=== PATIENT | male | born 1960 | race Caucasian/White ===

== ENCOUNTER 2021-09-20 18:48 | Inpatient (IN) | payer OTHER, SELFPAY ==
[~2021-09-20] VITALS: Ht 165.1 cm; Wt 48.6 kg
[~2021-09-20 18:48] MED LIST: ETOMIDATE 2 MG/ML 10 ML INJ IV ONE; MIDAZOLAM HCL 2 MG/2 ML VIAL ONE; NALOXONE HCL INJ 0.4 MG/ML AMP ONE; SUCCINYLCHOLINE CHLORIDE 20 MG/ML 10ML VIAL ONE
[2021-09-20] MEDS ORDERED: CEFEPIME 1 GM in SODIUM CHLORIDE 0.9% 50ML 50 ML IV ONE (19:15)
[2021-09-20 19:16] LABS: BASOPHILS # (AUTO) 0.1 (0.0-0.1); BASOPHILS % 0.3 % (0.0-1.0); HEMATOCRIT 48.1 % (38.2-49.6); HEMOGLOBIN 15.1 g/dL (14.0-18.0); LYMPHOCYTES # (AUTO) 3.9 (1.0-3.2); LYMPHOCYTES % 8.4 % (18.0-39.1); MEAN CORPUSCULAR HEMOGLOBIN 26.5 pg (28-32); MEAN CORPUSCULAR HGB CONC 31.4 g/dL (31-35); MEAN CORPUSCULAR VOLUME 84.4 fL (81-99); MONOCYTES # (AUTO) 3.5 (0.2-0.8); MONOCYTES % 7.6 % (4.4-11.3); NEUTROPHILS # (AUTO) 37.2 (2.1-6.9); NEUTROPHILS % 80.3 % (38.7-80.0); PLATELET COUNT 525 x10e3/uL (140-360); RED CELL DISTRIBUTION WIDTH 17.2 % (11.7-14.4)
[2021-09-20] MEDS ORDERED: ONDANSETRON HCL INJ 2MG/ML 2ML 2 MG/ML VIAL ONE (19:20)
[2021-09-20 19:21] LABS: CLARITY,URINE SL CLOUDY (CLEAR); COLOR,URINE YELLOW (YELLOW); KETONES,URINE NEGATIVE (NEGATIVE); LEUKOCYTE ESTERASE ,URINE NEGATIVE (NEGATIVE); NITRITE,URINE NEGATIVE (NEGATIVE); PROTEIN,URINE DIPSTICK 1+ (NEGATIVE); URINE UROBILINOGEN 0.2 mg/dL (0.2 - 1)
[2021-09-20] MEDS ORDERED: Morphine 4mg Syringe 4 MG/ML INJ ONE (19:21)
[2021-09-20 19:27] LABS: ALBUMIN 3.8 g/dL (3.5-5.0); ALBUMIN/GLOBULIN RATIO 1.1 (0.8-2.0); ANION GAP 29.4 mmol/L (8-16); CALCIUM 9.6 mg/dL (8.4-10.2); CREATININE, SERUM 0.86 mg/dL (0.72-1.25); POTASSIUM 4.4 mmol/L (3.5-5.1)
[2021-09-20 19:29] LABS: BACTERIA,URINE FEW /HPF; RBC,URINE 0-5 /HPF (0-5); WBC,URINE (MAN) 0-5 /HPF (0-5)
[2021-09-20 19:30] LABS: AMORPHOUS SEDIMENT,URINE FEW (FEW)
[2021-09-20] MEDS ORDERED: LEVALBUTEROL HCL SOLN NEBU 1.25 MG/3 ML NEB INH ONE (19:30)
[2021-09-20] MEDS ORDERED: IPRATROPIUM BROMIDE 0.02% 2.5 ML NEB NEB ONE (19:30)
[2021-09-20] MEDS ORDERED: ASPIRIN 81 MG CHEW TAB PO ONE (19:45)
[2021-09-20 20:07] LABS: CREATINE KINASE MB 18.7 ng/mL (0-5.0)
[2021-09-20] MEDS ORDERED: FOSPHENYTOIN 50 MG/ML VIAL IV STA (21:08)
[2021-09-20] MEDS ORDERED: FOSPHENYTOIN 1,000 MG in SODIUM CHLORIDE 0.9% 100 ML 100 ML IV ONE ×2 (21:15→21:30)
[2021-09-20] MEDS ORDERED: ACETAMINOPHEN 325 MG TAB PO PRN (21:15)
[2021-09-20] MEDS ORDERED: ONDANSETRON HCL INJ 2MG/ML 2ML 2 MG/ML VIAL IV PRN (21:15)
[2021-09-20] MEDS ORDERED: SODIUM CHLORIDE 0.9% 1000ML 1,000 ML IV SCH (21:15)
[2021-09-20] MEDS ORDERED: DEXAMETHASONE SOD PHOS 10 MG/1 ML VIAL ONE (21:43)
[2021-09-20] MEDS ORDERED: CEFTRIAXONE 1 GM VIAL ONE (21:44)
[2021-09-20] MEDS ORDERED: SODIUM CHLORIDE 0.9% 250ML 250 ML ONE (21:44)
[2021-09-20] MEDS ORDERED: REMDESIVIR 100MG 100 MG IV ONE ×2 (21:45→21:47)
[2021-09-20] MEDS ORDERED: SODIUM CHLORIDE 0.9% 200 ML ONE (21:46)
[2021-09-20 23:45] LABS: ABG HCO3 22 mmol/L (22-26); ABG PCO2 63 mmHg (35-45); ABG PH 7.15 (7.35-7.45); ABG PO2 520 mmHg (80-105); ABG TCO2 24
[2021-09-20] MEDS ORDERED: FOSPHENYTOIN 50 MG/ML 10ML VIAL ONE (23:58)
[2021-09-21] VITALS (8 sets, daily range): BP systolic 103–133; BP diastolic 54–94
[2021-09-21] MEDS ORDERED: SODIUM CHLORIDE 0.9% 100 ML ONE (00:47)
[2021-09-21] MEDS ORDERED: ACETAMINOPHEN 1000 MG/100 ML IV STA (02:11)
[2021-09-21] MEDS ORDERED: CLONAZEPAM1 MG PO (06:15)
[2021-09-21] MEDS ORDERED: ALPRAZOLAM1 MG PO (06:15)
[2021-09-21] MEDS ORDERED: ALBUTEROL INH (06:15)
[2021-09-21] MEDS ORDERED: MONTELUKAST SOD10 MG PO (06:15)
[2021-09-21] MEDS ORDERED: LOSARTAN POTASS25 MG PO (06:15)
[2021-09-21 06:33] LABS: BASOPHILS % 0.1 % (0.0-1.0); HEMATOCRIT 38.3 % (38.2-49.6); HEMOGLOBIN 12.5 g/dL (14.0-18.0); LYMPHOCYTES # (AUTO) 1.2 (1.0-3.2); LYMPHOCYTES % 2.5 % (18.0-39.1); MEAN CORPUSCULAR HEMOGLOBIN 26.7 pg (28-32); MEAN CORPUSCULAR HGB CONC 32.6 g/dL (31-35); MEAN CORPUSCULAR VOLUME 81.7 fL (81-99); MONOCYTES # (AUTO) 2.9 (0.2-0.8); MONOCYTES % 6.3 % (4.4-11.3); NEUTROPHILS # (AUTO) 41.1 (2.1-6.9); NEUTROPHILS % 88.1 % (38.7-80.0); PLATELET COUNT 440 x10e3/uL (140-360); RED BLOOD COUNT 4.69 x10e6/uL (4.3-5.7); RED CELL DISTRIBUTION WIDTH 16.2 % (11.7-14.4)
[2021-09-21 06:48] LABS: ALBUMIN 2.9 g/dL (3.5-5.0); ALBUMIN/GLOBULIN RATIO 1.2 (0.8-2.0); ANION GAP 13.8 mmol/L (8-16); CREATININE, SERUM 0.69 mg/dL (0.72-1.25); POTASSIUM 3.8 mmol/L (3.5-5.1)
[2021-09-21 07:11] LABS: CREATINE KINASE MB 19.9 ng/mL (0-5.0)
[2021-09-21 07:54] LABS: BAND NEUTROPHILS % (MANUAL) 1 %; LYMPHOCYTES % (MANUAL) 4 % (19-48); MONOCYTES % (MANUAL) 4 % (3.4-9.0); NEUTROPHILS % (MANUAL) 91 % (40-74); PLATELET ESTIMATE SLIGHTLY INCREASED; RBC MORPHOLOGY COMMENT NORMAL
[2021-09-21 07:55] LABS: PLATELET CLUMPS FEW; PLATELET MORPHOLOGY COMMENT FEW LARGE
[2021-09-21] MEDS: CEFTRIAXONE 2 GM in SODIUM CHLORIDE 0.9% 100 ML IV SCH (08:34)
[2021-09-21] MEDS: ASCORBIC ACID 500 MG TAB PO SCH ×2 (08:34→16:45)
[2021-09-21] MEDS: DEXAMETHASONE SOD PHOS 10 MG/1 ML VIAL IV SCH (08:34)
[2021-09-21] MEDS: ZINC SULFATE 50 MG CAP PO SCH (08:34)
[2021-09-21] MEDS ORDERED: SODIUM CHLORIDE 0.9% 250ML 250 ML ONE (08:39)
[2021-09-21 15:30] LABS: CREATINE KINASE MB 21.7 ng/mL (0-5.0)
[2021-09-21 18:59] LABS: CREATINE KINASE MB 21.6 ng/mL (0-5.0)
[2021-09-21] MEDS: ALBUTEROL SULFATE HFA 8GM INHALATION AEROSOL INH SCH (19:40)
[2021-09-22] VITALS: BP 126/63
[2021-09-22] MEDS: ALBUTEROL SULFATE HFA 8GM INHALATION AEROSOL INH SCH ×3 (00:01→12:37)
[2021-09-22 04:00] VITALS: BP 124/60
[2021-09-22 06:44] LABS: EOSINOPHILS # (AUTO) 0.1 (0.0-0.4); EOSINOPHILS % 0.1 % (0.0-6.0); LYMPHOCYTES # (AUTO) 1.2 (1.0-3.2); LYMPHOCYTES % 1.7 % (18.0-39.1); MEAN CORPUSCULAR HEMOGLOBIN 26.7 pg (28-32); MEAN CORPUSCULAR HGB CONC 32.5 g/dL (31-35); MEAN CORPUSCULAR VOLUME 82.3 fL (81-99); MONOCYTES # (AUTO) 3.4 (0.2-0.8); MONOCYTES % 4.7 % (4.4-11.3); NEUTROPHILS # (AUTO) 64.6 (2.1-6.9); NEUTROPHILS % 90.3 % (38.7-80.0); PLATELET COUNT 461 x10e3/uL (140-360); RED BLOOD COUNT 4.86 x10e6/uL (4.3-5.7); RED CELL DISTRIBUTION WIDTH 16.9 % (11.7-14.4)
[2021-09-22 07:05] LABS: ALBUMIN/GLOBULIN RATIO 1.1 (0.8-2.0); ANION GAP 18.5 mmol/L (8-16); CALCIUM 8.5 mg/dL (8.4-10.2); CREATININE, SERUM 0.64 mg/dL (0.72-1.25); POTASSIUM 4.5 mmol/L (3.5-5.1)
[2021-09-22 08:03] VITALS: BP 151/69
[2021-09-22 09:00] VITALS: BP 151/69
[2021-09-22 09:19] LABS: LYMPHOCYTES % (MANUAL) 2 % (19-48); NEUTROPHILS % (MANUAL) 98 % (40-74); PLATELET ESTIMATE ADEQUATE; PLATELET MORPHOLOGY COMMENT NORMAL; RBC MORPHOLOGY COMMENT NORMAL
[2021-09-22] MEDS: ZINC SULFATE 50 MG CAP PO SCH (09:53)
[2021-09-22] MEDS: DEXAMETHASONE SOD PHOS 10 MG/1 ML VIAL IV SCH (09:53)
[2021-09-22] MEDS: CEFTRIAXONE 2 GM in SODIUM CHLORIDE 0.9% 100 ML IV SCH (09:53)
[2021-09-22] MEDS: ASCORBIC ACID 500 MG TAB PO SCH (09:53)
[2021-09-22 11:52] VITALS: BP 153/75
[2021-09-22 15:41] VITALS: BP 146/70
== END 2021-09-22 15:43 | disposition hospice, home (50) | DRG 871 ==
LOC: ER 19:04 → ERHOLD 21:27 → MED/SURG2 09-21 02:20 → MED/SURG3 09-21 18:30
PROVIDERS: ADMIT Internal Medicine; ATTEND Internal Medicine
PROC: XW033E5 Introduction of Remdesivir Anti-infective into Peripheral Vein, Percutaneous Approach, New Technology Group 5 (ICD-10-PCS; principal; 2021-09-20)
DX: A41.9 Sepsis, unspecified organism (principal); G93.6 Cerebral edema; U07.1 COVID-19; J18.8 Other pneumonia, unspecified organism; C34.91 Malignant neoplasm of unspecified part of right bronchus or lung; C79.31 Secondary malignant neoplasm of brain; Z68.1 Body mass index [BMI] 19.9 or less, adult; J44.0 Chronic obstructive pulmonary disease with (acute) lower respiratory infection; R63.6 Underweight; F17.200 Nicotine dependence, unspecified, uncomplicated; J44.9 Chronic obstructive pulmonary disease, unspecified; Z66 Do not resuscitate; Z51.5 Encounter for palliative care
CPT/HCPCS: 36415; 51700; 70450; 71045; 80053; 81001; 82550; 82553; 82805; 83605; 84484; 85025; 87040; 87071; 87086; 87205; 93005; 94660; 94799; 99284; J0248; J0330; J0456; J0692; J0696; J1100; J2250; J2270; J2310; J2405; J7030; J7050; Q2009; U0002